=== PATIENT | male | born 2000 | race Caucasian/White ===

== ENCOUNTER 2022-03-25 01:13 | Emergency (ER) | payer OTHER ==
[2022-03-25 02:14] LABS: ESTIMATED GFR 74 mL/min (>60)
== END 2022-03-25 02:34 | disposition home or self-care (01) ==
LOC: LB.ED 01:13
DX: R20.2 Paresthesia of skin (principal); K21.9 Gastro-esophageal reflux disease without esophagitis; Z79.899 Other long term (current) drug therapy
CPT/HCPCS: 36415; 80048; 80307; 82947; 85025; 93005; 93010; 99282; 99284-25; A0425; A0429